=== PATIENT | male | born 1940 | race Caucasian/White ===

== ENCOUNTER 2016-11-07 06:45 | Inpatient (IN) | payer MEDICARE, OTHER ==
[2016-10-29 12:28] LABS: HEMATOCRIT 42.9 % (40.0-51.0); HEMOGLOBIN 14.5 g/dL (13.6-17.8)
[2016-10-29 12:44] LABS: BUN (BLOOD UREA NITROGEN) 13 MG/DL (6-23); CALCIUM, SERUM 8.7 MG/DL (8.5-10.4); CHLORIDE, SERUM 104 MMOL/L (96-112); CO2 (CARBON DIOXIDE) 25 MMOL/L (24-34); CREATININE 0.82 MG/DL (0.70-1.30); GFR AFRICAN AMERICAN 100 ML/MIN (>=60); GFR NON AFRICAN AMERICAN 87 ML/MIN (>=60); GLUCOSE, SERUM 90 MG/DL (60-99); POTASSIUM, SERUM 4.3 MMOL/L (3.5-5.3); SODIUM, SERUM 140 MMOL/L (135-148)
--- NOTE | ~2016-11-07 | OP ---
Record Of Operation [facility] [address] [place]. [address] NAME: ALMA DELIA CERNA JR : 42 STATUS : ADM IN PAT#: [id number] AGE: 76 ADM/REG DATE : 11/07/16 MR#: [id number] REPORT SERV DATE: 11/07/16 DICTATED BY: HAYDEE RIOS DATE: 11/07/16 REPORT STATUS : Draft TRANSCRIBED BY: MODL DATE: 11/07/16 DATE OF PROCEDURE: 11/07/2016 PREOPERATIVE DIAGNOSIS: Prostate cancer. POSTOPERATIVE DIAGNOSIS: Prostate cancer. PROCEDURE: Robotic assisted laparoscopic radical prostatectomy. SURGEON: Haydee Rios M.D. ADMINISTRATIVE OFFICE MANAGER: JO-ANN Patel. ANESTHESIA: General. PREOPERATIVE INDICATIONS: This is a 76-year-old male, who presented with a negative family history of prostate cancer and a PSA of 7.29 in May 2015. An MRI identified an index lesion on the right and an MRI at targeted biopsy identified a Cresson 6 prostate cancer. There was no evidence of T3 disease and he elected active surveillance. Surveillance MRI in 08/2016, identified an index lesion in the right anterior base with an increased PI-RADS category of 5 indicating possible progression of disease. MRI targeted biopsy confirmed progression of disease with a Cresson 7, 3+4 prostate cancer. PTEN suppression was intact, but there was overexpression of ERG fusion. There was no evidence of T3 disease or lymphadenopathy. After reviewing his options, risks, alternatives, and benefits, he elected surgical management with a robotic approach. DESCRIPTION OF OPERATIVE PROCEDURE: Following adequate general anesthesia, the patient was placed in a modified lithotomy position, well padded and secured to the table, and placed in a steep Trendelenburg position. He was noted to be safely secured to the table and was returned to a level position where he was prepped and draped in the usual sterile fashion. A 16-Italian catheter was placed into the bladder from the operative field. Pneumoperitoneum was achieved with a Veress needle. A 12 mm port was placed in the left upper quadrant with the Optiview system. The camera was placed into the abdomen. The abdomen inspected and there were no abnormal findings. Under direct vision, the four robotic ports were placed as well as a left lower quadrant 5 mm port. The patient was returned to a Trendelenburg position and docked to the robot. The bladder was taken down by incising laterally along the median umbilical ligaments to the level of the vas deferens bilaterally with the electrocautery ramila. The space of Retzius was developed bluntly. Fat was dissected off the anterior surface of the prostate sharply and sent for separate pathology review in view of the anterior location of his tumor. The endopelvic fascia was incised bilaterally and the levator muscle swept off the lateral surface of the prostate bilaterally. The dorsal vein complex was dissected out and controlled and divided with an endovascular ETHEL stapler. The bladder neck was incised at its junction with the base of the prostate with the electrocautery spatula. The bladder was entered. The catheter was grasped with a ProGrasp Record Of Operation [address] [place]. [address] NAME: ALMA DELIA CERNA JR : 42 STATUS : ADM IN [facility]#: [id number] AGE: 76 ADM/REG DATE : 11/07/16 MR#: [id number] REPORT SERV DATE: 11/07/16 DICTATED BY: HAYDEE RIOS DATE: 11/07/16 REPORT STATUS : Draft TRANSCRIBED BY: JOSHUA DATE: 11/07/16 grasper and used for anterior retraction on the prostate. The posterior bladder neck was then developed and incised with the electrocautery spatula. A plane was bluntly developed between the posterior bladder neck and prostate. Anterior Denonvilliers fascia was incised to expose the vas deferens and seminal vesicles. The vas deferens were dissected out bluntly, divided sharply and the ends of the vas deferens grasped with the ProGrasp grasper for additional anterior retraction on the prostate. The seminal vesicles were dissected out bluntly. Their blood supply controlled with interlocking clips and then divided sharply at their base. The bladder neck was inspected and did require some minor reconstruction with a single [id number] 3-0 Vicryl suture at the 9 o'clock position, taking care to avoid the ureteral orifice. Posterior Denonvilliers fascia was incised and a plane was bluntly developed between the rectum and prostate. The levator fascia was incised bilaterally and the neurovascular bundles bluntly and sharply dissected away from the posterior lateral surface of the prostate bilaterally. The pedicles were controlled with interlocking clips and divided sharply with a round-tip scissors. The urethra was dissected out with the round-tip scissors. The dorsal vein complex was secured to the pubic periosteum with a figure-of- eight 2-0 Monocryl suture. The urethra was then divided sharply at the prostatourethral junction. The catheter was withdrawn. The posterior urethra was divided as well as the remaining apical attachments. The prostate was freed and placed in an EndoCatch sac and placed out of the view of the operative field. The pelvis was irrigated with sterile water and antibiotic solution and carefully inspected. There was excellent hemostasis and no apparent rectal injury. Posterior Denonvilliers fascia was reapproximated to the posterior urethral plate with a running 3-0 V-Loc suture in a Billy stitch fashion. The urethrovesical anastomosis was then performed with a running 3- 0 V-Loc suture over a 20-Italian catheter. The balloon was filled with 10 mL of sterile water. The bladder was irrigated with sterile water and there was a watertight anastomosis. A 19 Fitz drain was passed through one of the robotic ports and placed into the pelvis. The port was removed, its exit site demonstrating good hemostasis. The drain was fixed to the skin with 2-0 Prolene suture. The patient was de-docked from the robot and returned to a level position. The remaining trocars were removed under direct vision, their exit sites demonstrating good hemostasis. The periumbilical port was used to guide a transverse fascial incision to allow intact retrieval of the specimen. This was closed with six interrupted #1 Ethibond sutures. The periumbilical wound and port sites were irrigated with antibiotic solution and skin edges reapproximated with skin clips. The drain was left to grenade suction. The catheter was left to gravity drainage. Bandages were applied. The procedure was concluded. He was awakened from his anesthesia, had tolerated it well and transferred to the recovery room in satisfactory condition. KAVITHA/JOSHUA Haydee iRos M.D. Record Of Operation [place] [id number] [facility] [place]. [address] NAME: ALMA DELIA CERNA JR : 42 STATUS : ADM IN [facility]#: [id number] AGE: 76 ADM/REG DATE : 11/07/16 MR#: [id number] REPORT SERV DATE: 11/07/16 DICTATED BY: HAYDEE RIOS DATE: 11/07/16 REPORT STATUS : Draft TRANSCRIBED BY: JOSHUA DATE: 11/07/16 / [id number] CC: Haydee Rios M.D.
[~2016-11-07 06:45] MED LIST: ASAB PO; BEN25 PO; C5 PO; CLARIT10 PO; FISH OIL1200 MG PO; FLOMAX4 PO; GLUCCHONDR PO; HALF81 PO; HYDROCHLOROT12.5 MG PO; I20 PO; KLONO1 PO; LIPITOR20 PO; LOVENOX120 SC; NAP500 PO; NORCO1 TA1 PO; TUMSROLL PO; ULTRAM50 PO; VOLT75 PO; VOLTAREN1 % TOP; ZYRTEC ALLGY10 MG PO
[2016-11-07 07:12] LABS: INTERNATIONAL NORMAL RATI 1.2 UNITS (-)
[2016-11-07 07:13] LABS: PROTIME (NOT ORD) 14.9 SEC (12.0-14.5)
[2016-11-07 12:45] LABS: HEMATOCRIT 40.2 % (40.0-51.0); HEMOGLOBIN 13.4 g/dL (13.6-17.8)
[2016-11-07 12:57] LABS: CREATININE 0.93 MG/DL (0.70-1.30)
[2016-11-08 07:27] LABS: INTERNATIONAL NORMAL RATI 1.3 UNITS (-); PROTIME (NOT ORD) 15.9 SEC (12.0-14.5)
== END 2016-11-08 14:09 | disposition home or self-care (01) | DRG 708 ==
LOC: SDC/OF 06:45 → PACU 12:32 → 4SO 15:10
PROVIDERS: Urology
PROC: 0VT04ZZ Resection of Prostate, Percutaneous Endoscopic Approach (ICD-10-PCS; principal; 2016-11-07 07:30)
PROC: 0VT34ZZ Resection of Bilateral Seminal Vesicles, Percutaneous Endoscopic Approach (ICD-10-PCS; principal; 2016-11-07 07:30)
PROC: 8E0W4CZ Robotic Assisted Procedure of Trunk Region, Percutaneous Endoscopic Approach (ICD-10-PCS; principal; 2016-11-07 07:30)
PROC: 0VTQ4ZZ Resection of Bilateral Vas Deferens, Percutaneous Endoscopic Approach (ICD-10-PCS; principal; 2016-11-07 07:30)
DX: C61 Malignant neoplasm of prostate (principal); I48.2 Chronic atrial fibrillation; F41.9 Anxiety disorder, unspecified; M19.90 Unspecified osteoarthritis, unspecified site; E66.9 Obesity, unspecified; G47.33 Obstructive sleep apnea (adult) (pediatric); Z96.653 Presence of artificial knee joint, bilateral; Z79.01 Long term (current) use of anticoagulants; Z98.890 Other specified postprocedural states; Z86.73 Personal history of transient ischemic attack (TIA), and cerebral infarction without residual deficits; Z79.82 Long term (current) use of aspirin; Z88.8 Allergy status to other drugs, medicaments and biological substances; Z91.048 Other nonmedicinal substance allergy status; Z68.33 Body mass index [BMI] 33.0-33.9, adult; M62.81 Muscle weakness (generalized)
CPT/HCPCS: 80048; 82565; 84132; 85014; 85018; 85610; 88304; 88309; 93005; 97110-GP; 97161-GP; A9270-GY; G8990-CH-GP; G8991-CH-GP; G8992-CH-GP; J0690; J1885; J2250; J2405; J2710; J2795; J3010